=== PATIENT | male | born 1975 | race Caucasian/White ===

== ENCOUNTER 2016-05-10 19:55 | Emergency (ER) | payer BC, OTHER ==
[~2016-05-10] VITALS: Ht 188 cm; Wt 122.1 kg
[2016-05-10 19:59] VITALS: TEMP 38.2; Ht 188 cm; Wt 122.1 kg
[2016-05-10] MEDS ORDERED: ALBUT/IPRATROP 3MG/0.5MG NEB 3 ML VIAL INH STA (20:15)
[2016-05-10] MEDS ORDERED: ACETAMINOPHEN 500 MG TAB PO STA (20:15)
[2016-05-10] MEDS ORDERED: IBUP-1050 PO (20:27)
--- NOTE | 2016-05-10 20:30 | EMERGENCY ROOM VISIT NOTE ---
History Report prepared by Sophie: Mauriilo العراقي Under the Supervision of: Dr. Wai Vasquez D.O. First contact with patient: 20:04 Chief Complaint: FEVER Stated Complaint: COUGH,FEVER OF 102.9 FOR 2 DAYS BODY ACHES History of Present Illness The patient is a 41 year old male who presents to the Emergency Room with complaints of persistent flu-like symptoms for the past 2 days. The patient also complains of fevers, chills, sweats, sore throat, runny nose, and productive cough. The patient notes that his fever has been around 102 and 102.9. He denies nausea, vomiting, or diarrhea. He took 2 Advil for his fever about one hour ago. Source of History: patient Onset: 2 days Position: other (global) Associated Symptoms: + chills, + cough (productive), + fevers, + sorethroat , No diarrhea, No nausea, No vomiting Note: Other associated symptom: sweats, runny nose Review of Systems See HPI for pertinent positives & negatives. A total of 10 systems reviewed and were otherwise negative. Past Medical & Surgical Medical Problems: (1) No Known Active Medical Problems Family History FH: cancer FH: diabetes mellitus FH: heart disease FH: hypertension FH: lung disease Social History Smoking Status: Never Smoker Alcohol Use: occasionally Marital Status: Housing Status: lives with significant other Occupation Status: employed Current/Historical Medications Scheduled Ibuprofen (Advil), 200-600 MG PO Q4H Oseltamivir (Tamiflu), 75 MG PO BID Allergies Coded Allergies: No Known Allergies (Unverified , 05/10/16) Physical Exam Vital Signs Date Time Temp Pulse Resp B/P Pulse Ox O2 Delivery O2 Flow Rate FiO2 05/10/16 21:37 79 18 130/71 98 Room Air 05/10/16 19:59 38.2 106 18 142/79 94 Room Air Physical Exam GENERAL: Patient is awake alert in no acute distress patient is resting comfortably and showing no signs of anxiety EYES: The conjunctivae are clear. The pupils are round and reactive. EARS, NOSE, MOUTH AND THROAT: The nose is without any evidence of any deformity. Mucous membranes are moist tongue is midline. Clear rhinorrhea noted bilaterally. No significant erythema in posterior oropharynx. NECK: The neck is nontender and supple. RESPIRATORY: Scattered rhonchi throughout. No tachypnea or conversational dyspnea noted. CARDIOVASCULAR: Regular rate and rhythm noted there no murmurs rubs or gallops normal S1 normal S2 GASTROINTESTINAL: The abdomen is soft. Bowel sounds are present in all quadrants. Abdomen is nontender MUSCULOSKELETAL/EXTREMITIES: There is no evidence of gross deformity full range of motion is noted in the hips and shoulders SKIN: There is no obvious evidence of any rash. There are no petechiae, pallor or cyanosis noted. NEUROLOGIC: Patient is awake alert and oriented x3 Medical Decision & Procedures ER Provider Diagnostic Interpretation: X-ray results as stated below per interpretation by me and the radiologist. CHEST 2 VIEWS ROUTINE CLINICAL HISTORY: cough dyspnea COMPARISON STUDY: No previous studies for comparison. FINDINGS: The bones soft tissues and hemidiaphragms are normal. The cardiomediastinal silhouette is normal. The lungs are clear. The pulmonary vasculature is normal. IMPRESSION: Negative chest. Electronically signed by: Dez Perez M.D. 05/10/2016 8:58 PM Dictated Date/Time: 05/10/2016 8:58 PM Laboratory Results Test 05/10/16 20:22 Influenza Type A Antigen POS for Influ A (NEG) Influenza Type B Antigen Neg for Influ B (NEG) Laboratory results per my review. Medications Administered Medications (Trade) Dose Ordered Sig/Alec Route Start Time Stop Time Status Last Admin Dose Admin Acetaminophen (Tylenol Tab) 1,000 mg NOW STAT PO 05/10/16 20:15 05/10/16 20:17 DC 05/10/16 20:22 1,000 MG Albuterol/ Ipratropium (Duoneb) 3 ml NOW STAT INH 05/10/16 20:15 05/10/16 20:17 DC 05/10/16 20:22 3 ML Oseltamivir Phosphate (Tamiflu Cap) 75 mg NOW STAT PO 05/10/16 21:29 05/10/16 21:30 DC 05/10/16 21:37 75 MG ED Course 2012: The patient was evaluated in room A2. A complete history and physical examination were performed. 2014: Ordered Duoneb 3 ml INH, Tylenol tab 1000 mg PO. 2121: At this time, I reevaluated the patient and discussed test results with him. I discussed Tamiflu with the patient. 2128: Ordered Tamiflu Cap 75 mg PO. 2134: Upon reevaluation, the patient is resting comfortably. I discussed the results and treatment plan with him. He verbalized agreement of the treatment plan. The patient was discharged home. Medical Decision Differential diagnosis: Etiologies such as viral syndrome, otitis, pharyngitis, pneumonia, influenza, meningitis, urinary tract infection, sepsis, bacteremia, as well as others were entertained. Nursing notes reviewed. The patient is a male who presented to the emergency department for evaluation. The patient and her symptoms. Viral syndrome. The patient's chest x-ray did not show signs of pneumonia. The patient is positive I do feel it is highly likely that he has. He is had symptoms for exactly 48 hours. The patient was offered Tamiflu in the emergency department. He was reevaluated multiple times. He was treated with Tylenol. I discussed the patient's laboratory radiographic studies with him. He was encouraged to rest and avoid any strenuous. He was also encouraged to call his primary care physician to schedule follow-up appointment. He was also encouraged to return to emergency department immediately if symptoms change worsen or need arises. Impression Primary Impression: Fever Additional Impression: Influenza Scribe Attestation The scribe's documentation has been prepared under my direction and personally reviewed by me in its entirety. I confirm that the note above accurately reflects all work, treatment, procedures, and medical decision making performed by me. Departure Information Dispostion Home / Self-Care Prescriptions Oseltamivir (Tamiflu) 75 Mg Cap 75 MG PO BID, #10 CAP Prov: Wai Vasquez DO 05/10/16 Forms HOME CARE DOCUMENTATION FORM, IMPORTANT VISIT INFORMATION Patient Instructions Flu, My [facility] Additional Instructions Call your family to schedule a follow-up appointment. Rest and avoid any strenuous activity. Drink plenty clear liquids. Continue using Tylenol as directed for fever and body aches. Problem Qualifiers Primary Impression: Fever Fever type: unspecified Qualified Codes: R50.9 - Fever, unspecified
--- NOTE | 2016-05-10 21:00 | DIAGNOSTIC IMAGING REPORT ---
CHEST 2 VIEWS ROUTINE CLINICAL HISTORY: cough dyspnea COMPARISON STUDY: No previous studies for comparison. FINDINGS: The bones soft tissues and hemidiaphragms are normal. The cardiomediastinal silhouette is normal. The lungs are clear. The pulmonary vasculature is normal. IMPRESSION: Negative chest. Electronically signed by: Dez Perez M.D. 05/10/2016 8:58 PM Dictated Date/Time: 05/10/2016 8:58 PM
[2016-05-10] MEDS ORDERED: OSELTAMIVIR PHOSPHATE 75 MG CAP PO STA (21:29)
[2016-05-10] MEDS ORDERED: OSEL75CA12 PO (21:30)
[2016-05-10 21:37] VITALS: BP 130/71; PULSE 79; O2SAT 98
== END 2016-05-10 21:40 | disposition home or self-care (01) ==
LOC: C.EDB 19:57 → C.EDA 21:40
DX: J11.1 Influenza due to unidentified influenza virus with other respiratory manifestations (principal); Z80.9 Family history of malignant neoplasm, unspecified; Z83.3 Family history of diabetes mellitus; Z82.49 Family history of ischemic heart disease and other diseases of the circulatory system

== ENCOUNTER 2017-05-05 02:43 | Emergency (ER) | payer BC, OTHER ==
[~2017-05-05] VITALS: Ht 190.5 cm; Wt 122.9 kg
[~2017-05-05 02:43] MED LIST: IBUP-1050 PO
[2017-05-05 02:50] VITALS: TEMP 37.2; Ht 190.5 cm; Wt 122.9 kg
[2017-05-05] MEDS ORDERED: SODIUM CHLORIDE 0.9% 1000ML 1,000 ML IV STA (02:59)
[2017-05-05] MEDS ORDERED: ALBUT/IPRATROP 3MG/0.5MG NEB 3 ML VIAL INH STA (02:59)
[2017-05-05] MEDS ORDERED: KETOROLAC TROMETHAMINE 30 MG/ML VIAL IV STA (02:59)
[2017-05-05 03:15] VITALS: O2SAT 98
[2017-05-05 03:25] LABS: BASO % 0.3 %; BASO ABS # 0.02 K/uL (0-0.2); EOS % 1.9 %; EOS ABS # 0.12 K/uL (0-0.5); HEMATOCRIT 44.2 % (42-52); HEMOGLOBIN 15.3 g/dL (14.0-18.0); IG# 0.01 K/uL (0.00-0.02); LYMPH % 16.4 %; LYMPH ABS # 1.04 K/uL (1.2-3.4); MEAN CELL VOLUME 86.5 fL (80-100); MEAN CORPUSCULAR HEMOGLOBIN 29.9 pg (25-34); MEAN CORPUSCULAR HGB CONC 34.6 g/dl (32-36); MEAN PLATELET VOLUME 10.1 fL (7.4-10.4); MONO ABS # 0.63 K/uL (0.11-0.59); NEUT % 71.2 %; NEUT ABS # 4.51 K/uL (1.4-6.5); PLATELET COUNT 152 K/uL (130-400); RED CELL DISTRIBUTION WIDTH CV 12.6 % (11.5-14.5); RED CELL DISTRIBUTION WIDTH SD 40.2 fL (36.4-46.3); WHITE BLOOD COUNT 6.33 K/uL (4.8-10.8)
[2017-05-05 03:43] LABS: ALBUMIN 3.8 gm/dl (3.4-5.0); ALT/SGPT 42 U/L (12-78); AST/SGOT 32 U/L (15-37); BLOOD UREA NITROGEN 10 mg/dl (7-18); CALCIUM 8.8 mg/dl (8.5-10.1); CARBON DIOXIDE 31 mmol/L (21-32); CREATININE 0.99 mg/dl (0.60-1.40); GLUCOSE 128 mg/dl (70-99); POTASSIUM 3.8 mmol/L (3.5-5.1); SODIUM 139 mmol/L (136-145)
[2017-05-05 03:45] LABS: INFLUENZA B ANTIGEN POS for Influ B (NEG)
[2017-05-05 03:48] LABS: ALKALINE PHOSPHATASE 79 U/L (45-117); TOTAL PROTEIN 7.3 gm/dl (6.4-8.2)
--- NOTE | 2017-05-05 03:55 | EMERGENCY ROOM VISIT NOTE ---
History First contact with patient: 02:55 Chief Complaint: FEVER Stated Complaint: FEVER,BODY ACHES,CHEST HURTS History of Present Illness The patient is a 42 year old male who presents to the Emergency Room with complaints of fever, chills, cough, congestion, body aches and pains and chest burning for the past 3 days. T-max 103. Patient's been taking Tylenol and Motrin. He has been around other sick people. Patient denies dyspnea, abdominal pain, neck stiffness, sore throat, vomiting, diarrhea. He is tolerating p.o. fluids. Review of Systems An 10 system review of systems was completed with positives and pertinent negatives listed in the HPI. Past Medical/Surgical History Medical Problems: (1) No Known Active Medical Problems Family History FH: cancer FH: diabetes mellitus FH: heart disease FH: hypertension FH: lung disease Social History Smoking Status: Never Smoker Alcohol Use: occasionally Drug Use: none Marital Status: Housing Status: lives with significant other Occupation Status: employed Current/Historical Medications Scheduled Ibuprofen (Advil), 200-600 MG PO Q4H Physical Exam Vital Signs Date Time Temp Pulse Resp B/P (MAP) Pulse Ox O2 Delivery O2 Flow Rate FiO2 05/05/17 03:18 88 20 129/83 98 Room Air 05/05/17 03:17 91 05/05/17 03:15 98 Room Air 05/05/17 03:15 98 Room Air 05/05/17 02:50 37.2 97 18 157/99 93 Room Air Physical Exam VITALS: Vitals are noted on the nurse's note and reviewed by myself. Vital signs stable. GENERAL: Pleasant male mildly ill-appearing in no acute distress, nondiaphoretic , well-developed well-nourished. SKIN: The skin was without rashes, erythema, edema, or bruising. There is no tenting of the skin. Capillary reflex less than 2 seconds. HEAD: Normocephalic atraumatic. EARS: External auditory canals clear, tympanic membranes pearly dimas without erythema or effusion bilaterally. EYES: Pupils equal round and reactive to light and accommodation. Conjunctivae without injection, sclerae without icterus. Extraocular movements intact. NOSE: Patent, turbinates without inflammation or discharge. No sinus tenderness. MOUTH: Mucous membranes mildly dry. Pharynx without erythema or exudate. Uvula midline. Airway patent. Tongue does not deviate. NECK: Supple without nuchal rigidity. No lymphadenopathy. No thyromegaly. Cervical spine is nontender. No JVD. HEART: Regular rate and rhythm without murmurs gallops or rubs. LUNGS: Clear to auscultation bilaterally without wheezes, rales or rhonchi. No dullness to percussion. No retractions or accessory muscle use. ABDOMEN: Positive bowel sounds x 4. Normal tympanic percussion. Soft, nontender, without masses or organomegaly. Delgado sign negative. No guarding or rebound tenderness. No CVA tenderness MUSCULOSKELETAL: No muscle atrophy, erythema, or edema noted. NEURO: Patient was alert and oriented to person place and time. Normal sensation to light and sharp touch. No focal neurological deficits. Medical Decision & Procedures Laboratory Results 05/05/17 03:10 Red Blood Count 5.11, Mean Corpuscular Volume 86.5, Mean Corpuscular Hemoglobin 29.9, Mean Corpuscular Hemoglobin Concent 34.6, Mean Platelet Volume 10.1, Neutrophils (%) (Auto) 71.2, Lymphocytes (%) (Auto) 16.4, Monocytes (%) (Auto) 10.0, Eosinophils (%) (Auto) 1.9, Basophils (%) (Auto) 0.3, Neutrophils # (Auto ) 4.51, Lymphocytes # (Auto) 1.04, Monocytes # (Auto) 0.63, Eosinophils # (Auto ) 0.12, Basophils # (Auto) 0.02 05/05/17 03:10 Test 05/05/17 03:10 White Blood Count 6.33 K/uL (4.8-10.8) Red Blood Count 5.11 M/uL (4.7-6.1) Hemoglobin 15.3 g/dL (14.0-18.0) Hematocrit 44.2 % (42-52) Mean Corpuscular Volume 86.5 fL (80-100) Mean Corpuscular Hemoglobin 29.9 pg (25-34) Mean Corpuscular Hemoglobin Concent 34.6 g/dl (32-36) Platelet Count 152 K/uL (130-400) Mean Platelet Volume 10.1 fL (7.4-10.4) Neutrophils (%) (Auto) 71.2 % Lymphocytes (%) (Auto) 16.4 % Monocytes (%) (Auto) 10.0 % Eosinophils (%) (Auto) 1.9 % Basophils (%) (Auto) 0.3 % Neutrophils # (Auto) 4.51 K/uL (1.4-6.5) Lymphocytes # (Auto) 1.04 K/uL (1.2-3.4) Monocytes # (Auto) 0.63 K/uL (0.11-0.59) Eosinophils # (Auto) 0.12 K/uL (0-0.5) Basophils # (Auto) 0.02 K/uL (0-0.2) RDW Standard Deviation 40.2 fL (36.4-46.3) RDW Coefficient of Variation 12.6 % (11.5-14.5) Immature Granulocyte % (Auto) 0.2 % Immature Granulocyte # (Auto) 0.01 K/uL (0.00-0.02) Anion Gap 6.0 mmol/L (3-11) Est Creatinine Clear Calc Drug Dose 140.1 ml/min Estimated GFR () 110.0 Estimated GFR (Non- 94.9 BUN/Creatinine Ratio 10.1 (10-20) Calcium Level 8.8 mg/dl (8.5-10.1) Total Bilirubin 0.5 mg/dl (0.2-1) Direct Bilirubin 0.1 mg/dl (0-0.2) Aspartate Amino Transf (AST/SGOT) 32 U/L (15-37) Alanine Aminotransferase (ALT/SGPT) 42 U/L (12-78) Alkaline Phosphatase 79 U/L (45-117) Troponin I < 0.015 ng/ml (0-0.045) Total Protein 7.3 gm/dl (6.4-8.2) Albumin 3.8 gm/dl (3.4-5.0) Influenza Type A Antigen Neg for Influ A (NEG) Influenza Type B Antigen POS for Influ B (NEG) Medications Administered Medications (Trade) Dose Ordered Sig/Alec Route Start Time Stop Time Status Last Admin Dose Admin Sodium Chloride 1,000 ml @ 999 mls/hr Q1H1M STAT IV 05/05/17 02:59 05/05/17 03:59 05/05/17 03:14 999 MLS/HR Albuterol/ Ipratropium (Duoneb) 3 ml NOW STAT INH 05/05/17 02:59 05/05/17 03:01 DC 05/05/17 03:14 3 ML Ketorolac Tromethamine (Toradol Inj) 30 mg NOW STAT IV 05/05/17 02:59 05/05/17 03:01 DC 05/05/17 03:14 30 MG ED Course Prior records/ancillary studies reviewed. Triage Nursing notes reviewed. The patient's history was concerning for fever. Differential diagnosis: Etiologies such as viral syndrome, otitis, pharyngitis, pneumonia, influenza, meningitis, urinary tract infection, sepsis, bacteremia, as well as others were entertained. Physical examination: Patient is alert, tolerating fluids and speaking in full sentences ER treatment provided: Nebulizer, albuterol, Tamiflu On reassessment the patient felt better. Diagnostics interpreted by me: The labs revealed positive influenza B. Negative troponin. Stable H&H Hyperglycemia without DKA Imaging studies: Chest x-ray with no acute consolidation, pneumothorax or free air per my Interpretation by attending This appears to be consistent with influenza B. Patient was neurovascularly and neurologically intact. He had no signs of meningitis. Stable vital signs.. Normal EKG and negative troponin. Patient's symptoms have been ongoing for 3 days. He was advised to rest, stay well hydrated and take medicines as directed. Pt Is advised to stay at home until you are 24 hours fever free as he is highly contagious. He was advised that his family gets sick to get treated for the flu. By the evaluation outlined above emergent etiologies such as otitis, pharyngitis, pneumonia, meningitis, urinary tract infection, sepsis, bacteremia, as well as others were deemed relatively unlikely. The pt informed about the findings as listed above. All questions were answered and pleased with the treatment. Return instructions were outlined and the patient was discharged in stable condition. Outpatient prescription management: tamiflu Referral: The patient was referred back to their primary care physician for follow-up in 2 to 3 days for a recheck of the current condition. case reviewed with my Attending The chart was completed utilizing [employer] voice recognition software. Grammatical errors, random word insertions, pronoun errors, and incomplete sentences are an occassional consequence of this system due to software limitations, ambient noise, and hardware issues. Any formal questions or concerns about the content, text, or information contained within the body of this dictation should be directly addressed to the physician legal support assistant for clarification. Medical Decision As above Medication Reconcilliation Current Medication List: was personally reviewed by me Blood Pressure Screening Patient's blood pressure: Normal blood pressure Impression Primary Impression: Influenza B Additional Impression: Hyperglycemia Departure Information Dispostion Home / Self-Care Condition GOOD Referrals No Doctor, Assigned (PCP) Patient Instructions My [facility] Additional Instructions Your glucose is slightly elevated. Recheck this with family care. Tamiflu 75 m tablet twice a day for 5 days.Any medication can cause an allergic reaction, stop the pills immediately and return to the ER for rash, hives, breathing difficulties, or swelling. Acetaminophen(Tylenol) may be used for fever or pain. Use 1000mg every six hours as needed. Avoid using more than 3000mg in a 24 hour period. (AND/OR) Ibuprofen(Motrin, Advil) may be used for fever or pain. Use 600mg every six hours as needed. Take with food. Avoid using more than 2400mg in a 24 hour period. Do not use 2400mg per day for more than three consecutive days without physician direction. Prolonged inappropriate use can lead to stomach upset or ulcers. Afrin nasal spray: 2-3 sprays to each nostril twice daily as needed for congestion. Do not use for more than 3-4 days because it can lead to worsening rebound congestion. Pseudoephedrine(Sudaphed): 30-60mg every 6 hours as needed for nasal congestion. Do not take this with other stimulant products or supplements. Albuterol Inhaler: Take 2 puffs four times daily for seven days, then as needed. Rest and drink plenty of fluids. Controlling your fever with Tylenol and Ibuprofen as above will make you feel better. Wash your hands after nose blowing, sneezing, or coughing. Most germs are spread through contact, therefore improper hygiene may result in your close contacts and loved ones becoming ill just like you. Continue current medications. Return to the ER for severe headache, neck stiffness, chest pain, difficulty breathing, fevers, vomiting, worsening of your condition, or as needed. Follow up with your primary physician this week for a recheck of your current condition. Problem Qualifiers
[2017-05-05] MEDS ORDERED: OSELTAMIVIR PHOSPHATE 75 MG CAP PO STA (04:03)
[2017-05-05] MEDS ORDERED: ALBUTEROL HFA 8 GM INHALER INH STA (04:03)
[2017-05-05] MEDS ORDERED: OSEL75CA12 PO (04:04)
[2017-05-05 04:21] VITALS: BP 142/71; PULSE 92; O2SAT 92
--- NOTE | 2017-05-05 06:39 | DIAGNOSTIC IMAGING REPORT ---
CHEST 2 VIEWS ROUTINE HISTORY: 42 years-old Male CP, fever acute atypical chest pain with fever COMPARISON: Chest radiographs 05/10/2016 TECHNIQUE: PA and lateral views of the chest FINDINGS: The cardiomediastinal and hilar silhouettes are within normal limits. There is no pneumothorax, pleural effusion, focal airspace consolidation or overt pulmonary edema. The bones of the chest appear grossly intact. IMPRESSION: No acute process. The above report was generated using voice recognition software. It may contain grammatical, syntax or spelling errors. Electronically signed by: Petr Prasad M.D. 05/05/2017 6:37 AM Dictated Date/Time: 05/05/2017 6:36 AM
== END 2017-05-05 04:22 | disposition home or self-care (01) ==
LOC: C.EDB 02:44 → C.EDA 04:22
DX: J10.1 Influenza due to other identified influenza virus with other respiratory manifestations (principal); R73.9 Hyperglycemia, unspecified; Z80.9 Family history of malignant neoplasm, unspecified; Z83.3 Family history of diabetes mellitus; Z82.49 Family history of ischemic heart disease and other diseases of the circulatory system; Z83.6 Family history of other diseases of the respiratory system